=== PATIENT | male | born 1950 | race Caucasian/White ===

== ENCOUNTER 2020-09-20 05:25 | Emergency (ER) | payer MEDICARE ==
--- NOTE | 2020-09-20 06:04 | EDM.PDOC ---
ED HPI GENERAL MEDICAL PROBLEM - General Chief Complaint: Lower Extremity Injury/Pain Stated Complaint: L LEG SWOLLEN Time Seen by Provider: 09/20/20 05:45 Source of Information: Reports: Patient History Limitations: Reports: Physical Impairment (Very hard of hearing, and no hearing aids) - History of Present Illness INITIAL COMMENTS - FREE TEXT/NARRATIVE: Mr. Dugan is a pleasant 69-year-old gentleman who now presents the ED with left leg swelling and discoloration. He states that he is on Eliquis for atrial fibrillation, and that he struck his proximal anteromedial left leg on the ball of a trailer hitch Wednesday night, 09/17/2020. He then noticed swelling of his left leg with ecchymotic discoloration to his left ankle and foot yesterday. No pain to the leg or foot, and no known injury to the leg or foot. No prior similar symptoms. Here in the ED, the the patient's initial BP is found to be mildly elevated at 158/93, otherwise, he is hemodynamically stable, afebrile, saturating 90% on room air. He appears to be relatively comfortable, in no acute distress. Prior to Wednesday, the patient denies having a recent fever, chills, sore throat, ear pain, nasal or sinus congestion, cough, dyspnea, chest pain, palpitations, nausea, vomiting, constipation, diarrhea, abdominal pain, urinary symptoms, recent weight gain or weight loss, recent bloody bowel movements or black bowel movements, recent joint aches, headaches, or rashes. I reviewed the PMHx/PSHx/SocHx, which was reviewed with the patient by the RN. The patient is visiting from [place], [place]. Left Lower Leg Pain Score (Numeric/FACES): 5 - Related Data Allergies Allergy/AdvReac Type Severity Reaction Status Date / Time No Known Allergies Allergy Verified 09/20/20 05:35 Home Meds: Home Meds Apixaban [Eliquis] 5 mg PO DAILY 09/20/20 [History] Past Medical History Cardiovascular History: Reports: Afib - Past Surgical History Cardiovascular Surgical History: Reports: Cardiac Ablation GI Surgical History: Reports: Hernia, Abdominal Male Surgical History: Reports: TURP-Transurethral Resection of Prostate Social & Family History - Tobacco Use Tobacco Use Status *Q: Never Tobacco User - Recreational Drug Use Recreational Drug Use: No Review of Systems - Review of Systems Review Of Systems: Comprehensive ROS is negative, except as noted in HPI. ED EXAM, GENERAL - Physical Exam Exam: See Below Exam Limited By: No Limitations General Appearance: Alert, WD/WN, No Apparent Distress Extremities: Other (There is an approximately 6 to 7 cm oval ecchymosis to the proximal anteromedial left leg, with minimal swelling, however, there is appro ximately 3-4+ pitting edema to the left leg, and non-tender ecchymotic discoloration to the left ankle and foot. Neurovascular status of the left lower extremity ) Course - Vital Signs Last Recorded V/S: Last Vital Signs Temp 37.1 C 09/20/20 05:35 Pulse 85 09/20/20 05:35 Resp 16 09/20/20 05:35 BP 158/93 H 09/20/20 05:35 Pulse Ox 98 09/20/20 05:35 - Re-Assessments/Exams Free Text/Narrative Re-Assessment/Exam: 09/20/20 05:56 As above, the patient is on Eliquis for atrial fibrillation, and struck his upper anteromedial left leg on the ball of a trailer hitch on Wednesday night, then discovered increased swelling of his left leg with painless ecchymotic discoloration of his left ankle and foot yesterday. I explained to the patient that the swelling and discoloration are due to extravasation of blood from his proximal injury, with local reactive inflammation. There is no way to remove the blood from the tissues. The only thing that can be done is elevation and compression of his left lower extremity. I therefore recommended that he begin wearing knee-high TEDS hose on his left lower extremity (or both), and elevate his left leg as much as possible when not ambulating. Departure - Departure Time of Disposition: 05:59 Disposition: Home, Self-Care 01 Condition: Good Clinical Impression: Extravasation of blood, Swelling of lower leg - Discharge Information *PRESCRIPTION DRUG MONITORING PROGRAM REVIEWED*: Not Applicable *COPY OF PRESCRIPTION DRUG MONITORING REPORT IN PATIENT MATT: Not Applicable Referrals: PCP,Not In Area [Primary Care Provider] - Forms: ED Department Discharge Additional Instructions: You were seen in the emergency room for swelling of your left leg and bruise- like discoloration of your left ankle and foot, after you struck your left leg on a trailer hitch ball Wednesday. When you struck your leg, you caused some local bleeding in the area of the injury. That blood has since traveled down your leg through fascial planes to wards your foot, through a process called extravasation. Blood within the blood vessels does not cause inflammation, however, blood outside of the blood vessels causes considerable inflammation. This is why your leg has become swollen. There is no way to get the blood out of the tissues - your body will have to reabsorb it over time, which could take months. We recommend that you purchase and begin wearing knee-high TEDS hose on your left leg (or both legs). Put it/them on every morning, and remove it/them at bedtime. We also recommend that you elevate your left leg as much as possible when not walking around. We recommend that you follow-up with your PCP when you return home. If any other problems, please do not hesitate to return to the ER. Sepsis Event Note (ED) - Evaluation Sepsis Screening Result: No Definite Risk - Focused Exam Vital Signs: Vital Signs Temp Pulse Resp BP Pulse Ox 09/20/20 05:35 37.1 C 85 16 158/93 H 98
== END 2020-09-20 06:17 | disposition home or self-care (01) ==
LOC: JD.ED 05:25
DX: M79.89 Other specified soft tissue disorders (principal); R58 Hemorrhage, not elsewhere classified; I48.91 Unspecified atrial fibrillation; Z79.01 Long term (current) use of anticoagulants
CPT/HCPCS: 99283